=== PATIENT | female | born 1965 | race Caucasian/White ===

== ENCOUNTER 2019-05-04 16:39 | Emergency (ER) | payer BC, SELFPAY ==
[2019-05-04 16:49] VITALS: BP 125/79; PULSE 68; RESP 16; TEMP 36.8; O2SAT 98
--- NOTE | 2019-05-04 16:51 | ED.EAR ---
HPI - Ear Problem General Chief complaint: Ear Stated complaint: L/Ear Plugged Time Seen by Provider: 05/04/19 16:47 Source: patient and RN notes reviewed Mode of arrival: ambulatory Limitations: no limitations History of Present Illness HPI Narrative: 54-year-old female presents with concern for left ear being clogged. Reports decreased hearing, feeling of fullness. Reports recent cold symptoms. Reports she is been putting hydrogen peroxide in it with no results. MD Complaint: decreased hearing Related Data Home Medications Medication Instructions Recorded Confirmed amitriptyline 25 mg PO DAILY 05/04/19 05/04/19 cetirizine [Zyrtec] 10 mg PO DAILY 05/04/19 05/04/19 fluticasone propionate [Flonase 1 spray INTRANASAL DAILY 05/04/19 05/04/19 Allergy Relief] propranolol 20 mg PO DAILY 05/04/19 05/04/19 Allergies Allergy/AdvReac Type Severity Reaction Status Date / Time No Known Allergies Allergy Unverified 01/06/14 17:03 Review of Systems Review of Systems: Narrative: CONSTITUTIONAL: Denies malaise, chills, sweats, or fever. ENT: Reports rhinorrhea, congestion, left ear fullness, decreased hearing left ear. Denies sinus pain, otalgia and sore throat. CARDIOVASCULAR: Denies chest pain, palpitations, or edema. RESPIRATORY: Denies cough or dyspnea. GASTROINTESTINAL: Denies abdominal pain, nausea, vomiting, diarrhea SKIN: Denies rash or itching. MUSCULOSKELETAL: Denies myalgia. NEUROLOGIC: Denies headache. All systems reviewed & are unremarkable except as noted in HPI and below PMFSH Family History Family History (Updated 11/18/13 @ 07:13 by DOCTOR UNKNOWN) Mother Family history of elevated blood lipids Other Diabetes mellitus Social History Social History Smoking status: Never smoker Second hand tobacco smoke exposure: No Alcohol intake: current Comments At time of signature, agree with nursing past medical, surgical, social and family history. There is no relevant family history pertinent to the presenting complaint Exam Narrative: Exam Narrative: GENERAL: Well-appearing, well-nourished, and in no acute distress. HEAD: Normocephalic EYES: PERRLA, conjunctivae clear ENT: Nares clear, turbinates erythematous, clear discharge. Mucous membranes moist. Right TM pearly liriano with dull light reflex left TM not visible due to cerumen impaction; no tragal tenderness. Oropharynx not erythematous without lesions. Tonsils not enlarged and without exudate, no drooling, no hoarseness, no trismus. NECK: Supple. No lymphadenopathy CHEST: No respiratory distress, speaks in full sentences. HEART: Regular rate and rhythm. SKIN: Warm, dry, no rash. NEURO: Alert and oriented x3. PSYCH: Normal mood and affect Course Course Emergency Course: Patient is aware of diagnosis, understands and agrees to treatment plan. Anticipatory guidance given. Patient agrees to follow-up as directed and is aware of reasons to seek care at the emergency department. Portions of this record may have been created with voice recognition software Vital Signs Vital signs: Vital Signs Temperature 98.3 F 05/04/19 16:49 Pulse Rate 68 05/04/19 16:49 Respiratory Rate 16 05/04/19 16:49 Blood Pressure 125/79 05/04/19 16:49 Pulse Oximetry 98 05/04/19 16:49 Temperature 98.3 F 05/04/19 16:49 Pulse Rate 68 05/04/19 16:49 Respiratory Rate 16 05/04/19 16:49 Blood Pressure 125/79 05/04/19 16:49 Pulse Oximetry 98 05/04/19 16:49 Reviewed. Procedures Ear Wax Removal Left Ear: Ear Wax Removal Date: 05/04/19 Ear Wax Removal Time: 17:05 Cerumenolytic Used: Cerumenex Results: Re-examined: cerumen removed completely TM Examination: other (TM pearly liriano, dull with effusion) Ear Canal Exam: atraumatic Patient Tolerated Procedure: well Complications: no problems Technique: ear canal curetted Medical Decision Making [facility] Narrative Medical decision mary
[2019-05-04] MEDS: CARBAMIDE PEROXIDE 6.5% OT SOLN 15 ML BTL 5 DROP LEFT EAR (16:57)
== END 2019-05-04 17:45 | disposition home or self-care (01) ==
PROVIDERS: Emergency Provider Nurse Practitioner; PCP Family Medicine
DX: H61.22 Impacted cerumen, left ear (principal); J01.90 Acute sinusitis, unspecified; M79.7 Fibromyalgia
CPT/HCPCS: 69210; 99213; A9270; G0463

== ENCOUNTER → 2020-01-03 12:33 | Outpatient (CLI) | payer BC, SELFPAY ==
--- NOTE | ~2020-01-03 | MM_ITS ---
EXAMINATION: MM screening kylee BI w jenni HISTORY: Screening TECHNIQUE: Craniocaudal and mediolateral oblique 3-D tomosynthesis images were obtained and synthetic 2-D images were generated. CAD analysis was submitted and interpreted. COMPARISON: Comparison to multiple prior studies sequentially, with oldest reviewed study dated 10/07. BREAST PARENCHYMAL COMPOSITION: The breasts are heterogeneously dense, which may obscure small masses . FINDINGS: There is no evidence of suspicious mass, calcification, or architectural distortion to sugg est malignancy in either breast. There has been no suspicious interval change. IMPRESSION: 1. No mammographic evidence of malignancy. 2. Recommend routine screening mammography in one year. BI-RADS Category 1: Negative Reviewed, dictated and finalized at location A.
== END ==
PROVIDERS: PCP Family Medicine; Visit Provider Obstetrics & Gynecology
DX: Z12.31 Encounter for screening mammogram for malignant neoplasm of breast (principal)
CPT/HCPCS: 77063; 77067

== ENCOUNTER → 2021-01-12 16:22 | Outpatient (CLI) | payer BC, SELFPAY ==
--- NOTE | ~2021-01-12 | MM_ITS ---
EXAMINATION: MM screening kylee BI w jenni HISTORY: Screening mammogram TECHNIQUE: Craniocaudal and mediolateral oblique 3-D tomosynthesis images were obtained and synthetic 2-D images were generated. CAD analysis was submitted and interpreted. COMPARISON: 01/03/2020, 11/19/2018, 10/21/2017 bilateral digital screening mammogram examinations BREAST PARENCHYMAL COMPOSITION: There are scattered areas of fibroglandular density.. FINDINGS: There is no evidence of suspicious mass, calcification, or architectural distortion to sugg est malignancy in either breast. There has been no suspicious interval change. IMPRESSION: 1. No mammographic evidence of malignancy. 2. Recommend routine screening mammography in one year. BI-RADS Category 1: Negative Reviewed, dictated and finalized at location A.
== END ==
PROVIDERS: PCP Family Medicine; Visit Provider Obstetrics & Gynecology
DX: Z12.31 Encounter for screening mammogram for malignant neoplasm of breast (principal)
CPT/HCPCS: 77063; 77067

== ENCOUNTER 2021-07-05 00:40 | Day surgery (SDC) | payer BC, SELFPAY ==
[2021-06-22 13:51] VITALS: BMI 27.1
--- NOTE | 2021-07-04 13:35 | PM.HPGS ---
History of Present Illness History of Present Illness Consent: Risks, benefits, and alternatives have been discussed and questions answered. Patient agrees to proceed with procedure. Chief complaint: neoplasm screening Narrative: Geno Billings is a 56 year old female Referred for colon cancer screening. She had an appendiceal carcinoid tumor removed about 12 years ago Review of Systems Review of Systems: All systems reviewed & are unremarkable except as noted in HPI and below PMFSH Past Medical History Medical History Appendicitis Auto immune neutropenia BMI 27.0-27.9,adult Migraine Surgical History Surgical History History of colon surgery Family History Family History Mother Family history of elevated blood lipids Other Diabetes mellitus Social History Social History Smoking status: Never smoker Second hand tobacco smoke exposure: No Alcohol intake: current Alcohol use details: 4 drinks monthly Living arrangements: with family Spiritual care concerns: No Meds Home Medications and Allergies Home Medications Medication Instructions Recorded Confirmed Type cetirizine [Zyrtec] 10 mg PO DAILY 05/04/19 07/05/21 History fluticasone propionate [Flonase 1 spray INTRANASAL DAILY 05/04/19 07/05/21 History Allergy Relief] propranolol 20 mg PO BID 05/04/19 07/05/21 History omeprazole 40 mg capsule,delayed 40 mg PO DAILY #30 cap 05/30/21 07/05/21 Rx release amitriptyline 25 mg PO HS 06/22/21 07/05/21 History Allergies Allergy/AdvReac Type Severity Reaction Status Date / Time No Known Allergies Allergy Verified 07/05/21 07:42 Exam Resp: Auscultation: clear to auscultation bilaterally Cardio: Rate: regular rate Rhythm: regular rhythm GI: GI Palp: Yes Soft to palpation and No Tenderness to palpation present (GI) Assessment and Plan Assessment and plan (1) Screening for colon cancer: Code(s): Z12.11 - Encounter for screening for malignant neoplasm of colon Status: Acute Assessment and Plan: Colonoscopy with possible biopsy or polypectomy or cautery or injection of substances.
[2021-07-05 07:43] VITALS: BP 122/85; PULSE 66; RESP 18; TEMP 37; O2SAT 100
[2021-07-05] MEDS: LACTATED RINGERS 1,000 ML 150 ML IV CONT (07:52)
--- NOTE | 2021-07-05 08:12 | WPDANESEPPF ---
Anes - Initial Pre Proc Eval Procedure: Operation Date: 07/05/21 09:00 Proposed Procedures p Screening Colonoscopy - Andrea Valiente MD Date/Time: 07/05/21 08:12 Surgeon: Andrea Valiente MD Pre Op Diagnosis: neoplasm screening Patient Data Age: 56 Gender: F Height: 1.78 m Weight: 83.8 kg Last Vital Signs Temp 37.0 C 07/05/21 07:43 Pulse 66 07/05/21 07:43 Resp 18 07/05/21 07:43 BP 122/85 07/05/21 07:43 Pulse Ox 100 07/05/21 07:43 Allergies Allergy/AdvReac Type Severity Reaction Status Date / Time No Known Allergies Allergy Verified 07/05/21 07:42 Home Medications Medication Instructions Recorded Confirmed Type cetirizine [Zyrtec] 10 mg PO DAILY 05/04/19 07/05/21 History fluticasone propionate [Flonase 1 spray INTRANASAL DAILY 05/04/19 07/05/21 History Allergy Relief] propranolol 20 mg PO BID 05/04/19 07/05/21 History omeprazole 40 mg capsule,delayed 40 mg PO DAILY #30 cap 05/30/21 07/05/21 Rx release amitriptyline 25 mg PO HS 06/22/21 07/05/21 History Patient hx anesthesia problems: none Family hx anesthesia problems: none Results Review: All pre-operative results and documents have been reviewed as part of the pre-operative evaluation. [facility] Past Medical History Medical History Appendicitis Auto immune neutropenia BMI 27.0-27.9,adult Migraine Surgical History Surgical History History of colon surgery Family History Family History Mother Family history of elevated blood lipids Other Diabetes mellitus Social History Social History Smoking status: Never smoker Second hand tobacco smoke exposure: No Alcohol intake: current Alcohol use details: 4 drinks monthly Living arrangements: with family Spiritual care concerns: No Anes - Eval Final PreProcedure Day of Procedure 07/05/21 08:12 Patient weight: overweight Heart: regular rate and rhythm Lungs: clear to auscultation Airway: Mallampati scale class II Neurological: alert and oriented Last oral intake: >/= 8 hours ASA classification: II Emergent: no Anesthetic plan: proceed Anesthesia type and monitoring: general GIVS and standard monitoring Results Review: All pre-operative results and documents have been reviewed as part of the pre-operative evaluation. Informed Consent: The patient's anesthetic plan and its attendant risks and benefits were discussed with the patient/family/POA. Questions were solicited and answers provided to the satisfaction of the patient/family/POA.
[2021-07-05 09:11] VITALS: BP 101/69; PULSE 61; RESP 24; O2SAT 99
[2021-07-05 09:21] VITALS: BP 111/75; PULSE 59; RESP 17; O2SAT 100
[2021-07-05 09:31] VITALS: BP 114/74; PULSE 57; RESP 21; O2SAT 99
== END 2021-07-05 09:38 | disposition home or self-care (01) ==
PROVIDERS: PCP Family Medicine; Visit Provider Internal Medicine Gastroenterology
PROC: 0DJD8ZZ Inspection of Lower Intestinal Tract, Via Natural or Artificial Opening Endoscopic (ICD-10-PCS; CPT 45378; principal; 2021-07-05 09:00)
DX: Z12.11 Encounter for screening for malignant neoplasm of colon (principal); K57.30 Diverticulosis of large intestine without perforation or abscess without bleeding; Z90.49 Acquired absence of other specified parts of digestive tract
CPT/HCPCS: 45378; J2001; J2704; J7120

== ENCOUNTER 2021-11-10 15:03 | Emergency (ER) | payer BC, SELFPAY ==
--- NOTE | 2021-11-10 15:07 | ED.HA ---
HPI - Headache General Chief Complaint: Headache Stated Complaint: Vomitting, Head pains/headaches Time Seen by Provider: 11/10/21 15:06 Source: patient Mode of arrival: ambulatory Limitations: no limitations History of Present Illness HPI Narrative: Ms. Seymour is a 56-year-old female patient presenting to the clinic today with complaints of headache, nausea, and vomiting x3 days. She reports she does have a history of migraine headaches and takes her propranolol every day. She also has been taking Sudafed. States she is having frontal headache with pressure and throbbing. She reports the pain 8 out of 10 currently. The pain has been making her so nauseous that she has been vomiting. She denies any runny nose but when she does blow her nose is clear. Does have nasal congestion. She did a home COVID test this morning that was negative. Related Data Home Medications Medication Instructions Recorded Confirmed cetirizine 10 mg tablet (Zyrtec) 10 mg PO DAILY 05/04/19 11/10/21 fluticasone propionate 50 1 spray intranasal DAILY 05/04/19 11/10/21 mcg/actuation nasal spray,suspension (Flonase Allergy Relief) propranolol 20 mg tablet 20 mg PO BID 05/04/19 11/10/21 amitriptyline 25 mg tablet 25 mg PO HS 06/22/21 11/10/21 Allergies Allergy/AdvReac Type Severity Reaction Status Date / Time No Known Allergies Allergy Verified 11/10/21 15:08 Review of Systems Review of Systems: Pertinent positives per HPI. Patient denies any fever, chills, rash, headache, visual changes, dizziness, cough, runny nose, sore throat, shortness of breath, chest pain, palpitations, nausea, vomiting, diarrhea, constipation, abdominal pain, or any urinary issues. [facility] Past Medical History Medical History Appendicitis Auto immune neutropenia BMI 27.0-27.9,adult Migraine Surgical History Surgical History History of colon surgery Family History Family History Mother Family history of elevated blood lipids Other Diabetes mellitus Social History Social History Smoking status: Never smoker Second hand tobacco smoke exposure: No Alcohol intake: current Alcohol use details: 4 drinks monthly Spiritual care concerns: No Comments At the time of my signature, I reviewed and agree with the nursing past medical, surgical, social, and family history. There is no relevant family history pertinent to the patient complaint. Exam Narrative: General: Well-developed, well nourished, in no apparent distress Head: Normocephalic, atraumatic Eyes: Pupils equally round and reactive to light bilaterally, EOM intact, sclera and conjunctive clear, no discharge, lids normal Ears: TMs intact and clear, ear canals clear, no drainage, grossly hearing normal. Nose: Nares patent, no discharge, moderate inflammation, frontal sinus tenderness/pressure Mouth: Oropharynx without lesions or masses, good dentition, MMM. Neck: Supple, trachea midline, no enlargement of anterior or posterior cervical nodes, no thyroid masses or goiter palpable. Cardio: Regular rate and rhythm, s1 and s2 normal, no murmur appreciated. Resp: Clear to auscultation bilaterally anteriorly and posteriorly, no rhonchi, rales, wheezing or rubs Course Course Emergency Course: Portions of this record may have been created with voice recognition software. Level of Care: Express Care Visit Vital Signs Vital signs: Vital signs reviewed MDM - Headache MDM Narrative Medical decision making narrative: At the time of visit patient is resting comfortably on the exam table. I suspect the patient has a sinus headache. I will send her in a prescription for some prednisone and Zofran and give her an injection of Toradol 60 mg i
[2021-11-10 15:11] VITALS: BP 139/86; PULSE 66; RESP 16; TEMP 35.6; O2SAT 100
[2021-11-10] MEDS: KETOROLAC (*BKC) 60 MG/2 ML VIAL IM (15:33)
== END 2021-11-10 15:45 | disposition home or self-care (01) ==
PROVIDERS: Emergency Provider Nurse Practitioner Family
DX: R51.9 Headache, unspecified (principal); R11.2 Nausea with vomiting, unspecified; D70.8 Other neutropenia
CPT/HCPCS: 96372; 99213; G0463; J1885

== ENCOUNTER 2021-11-16 16:06 | Emergency (ER) | payer BC, SELFPAY ==
[2021-11-16 16:19] VITALS: BP 126/73; PULSE 66; RESP 16; TEMP 36.6; O2SAT 100
--- NOTE | 2021-11-16 16:43 | ED.HA ---
HPI - Headache General Chief Complaint: Headache Stated Complaint: ortiz Time Seen by Provider: 11/16/21 16:43 History of Present Illness HPI Narrative: Geno Billings is a 56-year-old female PMH of seasonal allergies, GERD, anxiety, migraine, complaining of migraine and sinus congestion and feeling like she is got pressure at the frontal sinus and her ears/she was seen here 6 days ago and was treated with prednisone and Zofran for migraine and she states that she started feeling better but she took her last prednisone yesterday and the headache has returned- Takes propanolol for migraine headache twice a day normally and has been working well up to the last 2 weeks Related Data Home Medications Medication Instructions Recorded Confirmed cetirizine 10 mg tablet (Zyrtec) 10 mg PO DAILY 05/04/19 11/10/21 fluticasone propionate 50 1 spray intranasal DAILY 05/04/19 11/10/21 mcg/actuation nasal spray,suspension (Flonase Allergy Relief) propranolol 20 mg tablet 20 mg PO BID 05/04/19 11/10/21 amitriptyline 25 mg tablet 25 mg PO HS 06/22/21 11/10/21 Allergies Allergy/AdvReac Type Severity Reaction Status Date / Time No Known Allergies Allergy Verified 11/10/21 15:08 Review of Systems Review of Systems: CONSTITUTIONAL: Denies fever, chills, sweats. EYES: Denies visual changes, redness, discharge. ENT: Denies rhinorrhea, congestion, sore throat, otalgia. Mild redness in ears no sinus drainage CARDIOVASCULAR: Denies chest pain, palpitations, edema. RESPIRATORY: Denies dyspnea, wheezing, cough GASTROINTESTINAL: Denies abdominal pain, nausea, vomiting, diarrhea. GENITOURINARY: Denies dysuria, hematuria, abnormal discharge SKIN: Denies rash or itching. NEUROLOGIC: Denies numbness, or focal weakness. PSYCHIATRIC: Denies anxiety or depression. [facility] Past Medical History Medical History Appendicitis Auto immune neutropenia BMI 27.0-27.9,adult Migraine Surgical History Surgical History History of colon surgery Family History Family History Mother Family history of elevated blood lipids Other Diabetes mellitus Social History Social History Smoking status: Never smoker Second hand tobacco smoke exposure: No Alcohol intake: current Alcohol use details: 4 drinks monthly Spiritual care concerns: No Comments At time of signature, I agree with nursing past medical, surgical, social and family history. There is no relevant family history pertinent to the presenting complaint. Exam Narrative: GENERAL: This is a well-nourished, well-developed patient, in mild distress. HEAD: normocephalic, atraumatic. EYES: Sclera clear/white. Vision is grossly intact. EARS: External ears normal, auditory canals mild erythema and without drainage, TMs normal without perforation. Hearing grossly intact. NOSE: External nose normal without nasal discharge, nares without redness, no rhinorrhea. Erythema of turbinates THROAT: Mucous membranes moist, NECK: Neck supple, non-tender CARDIOVASCULAR: Regular rate and rhythm without murmurs, gallops, or rubs. RESPIRATORY: Clear to auscultation. Breath sounds equal bilaterally. No wheezes, rales, or rhonchi. GASTROINTESTINAL: Not done SKIN: warm, intact with no suspicious lesions or rash, good texture and turgor. NEURO: awake, alert, and oriented to person, place and time. There were no obvious focal neurologic abnormalities. Steady gait EXTREMITIES: Normal range of motion. BACK: Nontender without deformity Course Course Emergency Course: Patient here for return of migraine headache and was treated last week so will change treatment direction give one-time dose of 60 mg of prednisone on Toradol, put on a taper pack of steroids and Augmentin this go around L
[2021-11-16] MEDS: predniSONE 20 MG TABLET 60 MG PO (17:06)
[2021-11-16] MEDS: KETOROLAC (*BKC) 60 MG/2 ML VIAL IM (17:06)
== END 2021-11-16 17:26 | disposition home or self-care (01) ==
PROVIDERS: Emergency Provider Nurse Practitioner; PCP Family Medicine
DX: R51.9 Headache, unspecified (principal); D70.8 Other neutropenia
CPT/HCPCS: 96372; 99213; G0463; J1885; J7512

== ENCOUNTER 2021-12-08 11:02 | Outpatient (CLI) | payer BC, SELFPAY ==
--- NOTE | ~2021-12-08 | CT_ITS ---
EXAMINATION: CT sinus wo con DATE: 12/08/2021 11:27 INDICATION: Acute headache. TECHNIQUE: Computed tomography (CT) of the paranasal sinuses was performed without intravenous contra st. Iterative reconstruction technique was employed. The dose-length product was 343.37 mGy-cm. COMPARISON: None FINDINGS: The frontal, ethmoid, and sphenoid sinuses are clear. There is mild mucosal thickening in r ight maxillary sinus. There is mucosal thickening in the left infundibulum with stenosis of the infun dibulum. The ostiomeatal units are patent. There is leftward deviation of the nasal septum. IMPRESSION: 1. Mild mucosal thickening in the paranasal sinuses. 2. Leftward deviation of the nasal septum. Reviewed, dictated and finalized at location A.
== END 2021-12-08 11:03 | disposition home or self-care (01) ==
PROVIDERS: PCP Family Medicine; Visit Provider Nurse Practitioner Family
DX: G43.909 Migraine, unspecified, not intractable, without status migrainosus (principal); J34.89 Other specified disorders of nose and nasal sinuses; R42 Dizziness and giddiness; J34.2 Deviated nasal septum
CPT/HCPCS: 70486

== ENCOUNTER → 2022-03-08 15:27 | Outpatient (CLI) | payer BC, SELFPAY ==
--- NOTE | ~2022-03-08 | MM_ITS ---
EXAMINATION: MM screening kylee BI w jenni HISTORY: Screening TECHNIQUE: Craniocaudal and mediolateral oblique 3-D tomosynthesis images were obtained and synthetic 2-D images were generated. CAD analysis was submitted and interpreted. COMPARISON: Comparison to multiple prior studies sequentially, with oldest reviewed study dated 01/22. BREAST PARENCHYMAL COMPOSITION: There are scattered areas of fibroglandular density. FINDINGS: There is no evidence of suspicious mass, calcification, or architectural distortion to sugg est malignancy in either breast. There has been no suspicious interval change. IMPRESSION: 1. No mammographic evidence of malignancy. 2. Recommend routine screening mammography in one year. BI-RADS Category 1: Negative Reviewed, dictated and finalized at location B. [employer]
== END ==
PROVIDERS: PCP Family Medicine; Visit Provider Obstetrics & Gynecology
DX: Z12.31 Encounter for screening mammogram for malignant neoplasm of breast (principal)
CPT/HCPCS: 77063; 77067

== ENCOUNTER 2022-08-02 16:00 | Emergency (ER) | payer BC, SELFPAY ==
[2022-08-02 16:11] VITALS: BP 118/56; PULSE 78; RESP 17; TEMP 37.5; O2SAT 100
--- NOTE | 2022-08-02 16:37 | ED.URI ---
HPI - URI/Sore Throat General Chief Complaint: Upper Respiratory Infection Stated Complaint: pain in ear; popping jaw; headache; sore throat Time Seen by Provider: 08/02/22 16:23 Source: patient and RN notes reviewed Mode of arrival: ambulatory Limitations: no limitations History of Present Illness HPI Narrative: Patient presents today complaining of left ear pain x1 week with fatigue x2 days and swollen glands of the neck that occurred today. Denies fever, cough, congestion, rhinorrhea. Patient has been taking ibuprofen and allergy medication today without much relief. Related Data Home Medications Medication Instructions Recorded Confirmed cetirizine 10 mg tablet (Zyrtec) 10 mg PO DAILY 05/04/19 08/02/22 fluticasone propionate 50 1 spray intranasal DAILY 05/04/19 08/02/22 mcg/actuation nasal spray,suspension (Flonase Allergy Relief) propranolol 20 mg tablet 20 mg PO BID 05/04/19 08/02/22 amitriptyline 25 mg tablet 25 mg PO HS 06/22/21 08/02/22 Allergies Allergy/AdvReac Type Severity Reaction Status Date / Time No Known Allergies Allergy Verified 01/01/22 16:17 Review of Systems Review of Systems: CONSTITUTIONAL: Denies body aches, fever, chills, or sweats.+ fatigue EYES: Denies visual changes, redness, or discharge. ENT: Denies rhinorrhea, congestion, sore throat. + left ear pain, swollen glands CARDIOVASCULAR: Denies chest pain, palpitations, or edema. RESPIRATORY: Denies cough or dyspnea. GASTROINTESTINAL: Denies abdominal pain, nausea, vomiting, or diarrhea. GENITOURINARY: Denies dysuria or hematuria. SKIN: Denies rash, itching, or wounds. MUSCULOSKELETAL: Denies back pain, joint pain, or myalgia. NEUROLOGIC: Denies headache, numbness, tingling, or weakness. PSYCH: Denies depression or anxiety. [facility] Past Medical History Medical History Abnormal Pap smear of cervix 2008 ascus hpv negative Appendicitis Auto immune neutropenia BMI 27.0-27.9,adult Dizziness Fibromyalgia Frequent headaches Migraine Screening mammogram, encounter for Surgical History Surgical History History of appendectomy (~2008) noncancerous tumor inside History of colon surgery (04/19/08) 10 colon removed--carcinoid noncancerous tumor Family History Family History Mother Family history of elevated blood lipids Hypertension Other Diabetes mellitus uncle Carcinoma of colon aunt Breast cancer maternal aunt Grandparent Heart disease Sibling Acute myocardial infarction sister Social History Social History Smoking status: Never smoker Second hand tobacco smoke exposure: No Alcohol intake: former Alcohol use details: 4 drinks monthly Substance use: never Substance use type: does not use Living arrangements: other Additional living arrangements comments: Occupation/Education: occupation Additional occupation/education comments: teachers Gender identity (if verbalized by the patient): Female Sexual Orientation (if Verbalized by the Patient): Straight or Heterosexual Spiritual care concerns: No Comments At time of signature, I have reviewed and agree with nursing past medical, surgical, social and family history unless otherwise noted. Please see nursing chart for further information. There is no relevant family history pertinent to the presenting complaint Exam Narrative: GENERAL: Well-appearing, well-nourished, and in no acute distress. HEAD: Normocephalic, atraumatic. EYES: EOMI. No redness or drainage. Conjunctivae normal. ENT: Mucous membranes pink and moist. Nares clear. No rhinorrhea. TMs normal bilaterally. Throat erythematous and edematous. Tonsils 3+ with white exudate. Uvula
== END 2022-08-02 16:44 | disposition home or self-care (01) ==
PROVIDERS: Emergency Provider Nurse Practitioner; PCP Family Medicine
DX: J02.0 Streptococcal pharyngitis (principal); M79.7 Fibromyalgia
CPT/HCPCS: 87880; 99213; G0463

== ENCOUNTER 2022-12-16 18:47 | Emergency (ER) | payer BC, SELFPAY ==
[2022-12-16 19:30] VITALS: BP 134/77; PULSE 77; RESP 16; TEMP 37.2; O2SAT 100
--- NOTE | 2022-12-16 19:51 | ED.URI ---
HPI - URI/Sore Throat General Chief Complaint: Upper Respiratory Infection Stated Complaint: headache,sore throat,fever Time Seen by Provider: 12/16/22 19:51 Source: patient Mode of arrival: ambulatory Limitations: no limitations History of Present Illness HPI Narrative: 57-year-old female presents with complaint of postnasal drainage, sore throat, cough, nasal congestion sinus pressure feels like can not take a full breath. Symptoms for 2-3 days. Afebrile. Patient takes Zyrtec and Flonase daily. Did home COVID test that was negative. All systems reviewed and negative except as noted above. Related Data Home Medications Medication Instructions Recorded Confirmed propranolol 20 mg tablet 20 mg PO BID 05/04/19 12/16/22 amitriptyline 25 mg tablet 25 mg PO HS 06/22/21 12/16/22 Allergies Allergy/AdvReac Type Severity Reaction Status Date / Time No Known Allergies Allergy Verified 12/16/22 18:55 Review of Systems Review of Systems: CONSTITUTIONAL: Denies fever, chills, or sweats. Reports fatigue. EYES: Denies visual changes, redness, or discharge. ENT: Reports rhinorrhea, congestion, sore throat. Denies otalgia. CARDIOVASCULAR: Denies chest pain, palpitations, or edema. RESPIRATORY: reports cough and dyspnea with exertion.. GASTROINTESTINAL: Denies abdominal pain, nausea, vomiting, or diarrhea. GENITOURINARY: Denies dysuria or hematuria. SKIN: Denies rash or itching. MUSCULOSKELETAL: Denies back pain, joint pain, or myalgia. NEUROLOGIC: Denies headache, numbness, or weakness. PSYCHIATRIC: Denies anxiety or depression. All other systems reviewed are negative, except as documented in HPI. 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 Family History Family History Mother Family history of elevated blood lipids Hypertension Other Diabetes mellitus uncle Carcinoma of colon aunt Breast cancer maternal aunt Grandparent Heart disease Sibling Acute myocardial infarction sister Social History Social History Smoking status: Never smoker Second hand tobacco smoke exposure: No Alcohol intake: former Alcohol use details: 4 drinks monthly Substance use: never Substance use type: does not use Living arrangements: other Additional living arrangements comments: Occupation/Education: occupation Additional occupation/education comments: teachers Gender identity (if verbalized by the patient): Female Sexual Orientation (if Verbalized by the Patient): Straight or Heterosexual Spiritual care concerns: No Comments At time of signature, agree with nursing past medical, surgical, social and family history. There is no relevant family history pertinent to the presenting complaint. Exam Narrative: GENERAL: This is a well-nourished, well-developed patient, in no apparent distress. HEAD: normocephalic, atraumatic. EYES: PERRL. Sclera clear/white. Vision is grossly intact. EARS: External ears normal, auditory canals clear and without drainage, TMs normal without perforation. Hearing grossly intact. NOSE: External nose normal with no obvious nasal discharge, nares without redness, no rhinorrhea. THROAT: Mucous membranes moist, posterior pharynx clear. NECK: Neck supple, non-tender without lymphadenopathy, masses or thyromegaly.
== END 2022-12-16 20:05 | disposition home or self-care (01) ==
PROVIDERS: Emergency Provider Nurse Practitioner Family; PCP Family Medicine
DX: J06.9 Acute upper respiratory infection, unspecified (principal); Z79.899 Other long term (current) drug therapy
CPT/HCPCS: 87081; 87147; 87804; 87880; 99213; G0463

== ENCOUNTER 2023-03-18 16:37 | Emergency (ER) | payer BC, SELFPAY ==
[2023-03-18 16:44] VITALS: BP 125/79; PULSE 65; RESP 16; TEMP 37.2; O2SAT 100
--- NOTE | 2023-03-18 17:21 | ED.URI ---
HPI - URI/Sore Throat General Chief Complaint: Upper Respiratory Infection Stated Complaint: cough,sinus drainage,sore throat Time Seen by Provider: 03/18/23 17:21 Source: patient Mode of arrival: ambulatory Limitations: no limitations History of Present Illness HPI Narrative: 58-year-old female presents with complaint of sinus pressure, pain, drainage for One week. Reports taking [id number] sinus medication with Temporary relief of symptoms except for drainage. States sounds drainage taste bad, concerned for bacterial infection. All systems reviewed and negative except as noted above. Related Data Home Medications Medication Instructions Recorded Confirmed propranolol 20 mg tablet 20 mg PO BID 05/04/19 03/18/23 amitriptyline 25 mg tablet 25 mg PO HS 06/22/21 03/18/23 fluticasone propionate 50 1 spray intranasal DAILY 01/07/23 03/18/23 mcg/actuation nasal spray,suspension (Flonase Allergy Relief) Allergies Allergy/AdvReac Type Severity Reaction Status Date / Time No Known Allergies Allergy Verified 03/18/23 16:43 Review of Systems Review of Systems: CONSTITUTIONAL: Denies fever, chills, or sweats. EYES: Denies visual changes, redness, or discharge. ENT: reports rhinorrhea, congestion, sinus pressure, postnasal drainage. Denies sore throat, or otalgia. CARDIOVASCULAR: Denies chest pain, palpitations, or edema. RESPIRATORY: Denies cough or dyspnea. GASTROINTESTINAL: Denies abdominal pain, nausea, vomiting, or diarrhea. GENITOURINARY: Denies dysuria or hematuria. SKIN: Denies rash or itching. MUSCULOSKELETAL: Denies back pain, joint pain, or myalgia. NEUROLOGIC: Denies headache, numbness, or weakness. PSYCHIATRIC: Denies anxiety or depression. All other systems reviewed are negative, except as documented in HPI. [facility] Past Medical History Medical History Abnormal Pap smear of cervix 2008 ascus hpv negative Appendicitis Auto immune neutropenia BMI 27.0-27.9,adult Dizziness Fibromyalgia Frequent headaches Migraine Screening mammogram, encounter for Surgical History Surgical History History of appendectomy (~2008) noncancerous tumor inside History of colon surgery (04/19/08) 10 colon removed--carcinoid noncancerous tumor Family History Family History Mother Family history of elevated blood lipids Hypertension Other Diabetes mellitus uncle Carcinoma of colon aunt Breast cancer maternal aunt Grandparent Heart disease Sibling Acute myocardial infarction sister Social History Social History (Updated 01/07/23 @ 16:23 by TREY Kohler) Smoking status: Never smoker Second hand tobacco smoke exposure: No Alcohol intake: former Alcohol use details: 4 drinks monthly Substance use: never Substance use type: does not use Lack of Transportation: No Lack of Food: Never True Current Housing: I Have Housing Concerned About Future Housing: No Difficulty Paying Gas/Electric Bills: No Difficulty Paying for Meds: No Currently Unemployed: No Education: Bachelor's Degree Difficulty w/ Childcare or Family Care: No Living arrangements: other Additional living arrangements comments: Occupation/Education: occupation Additional occupation/education comments: teachers Gender identity (if verbalized by the patient): Female Sexual Orientation (if Verbalized by the Patient): Straight or Heterosexual Spiritual care concerns: No Comments At time of signature, agree with nursing past medical, surgical, social and family history. There is no relevant family history pertinent to the presenting complaint. Exam Narrative: GENERAL: This is a well-nourished, well-developed patient, in no apparent distress. HEAD: normocephal
== END 2023-03-18 17:36 | disposition home or self-care (01) ==
PROVIDERS: Emergency Provider Nurse Practitioner Family; PCP Family Medicine
DX: J01.90 Acute sinusitis, unspecified (principal); D70.8 Other neutropenia; M79.7 Fibromyalgia
CPT/HCPCS: 99213; G0463

== ENCOUNTER 2023-04-23 17:41 | Outpatient (CLI) | payer BC, SELFPAY ==
--- NOTE | ~2023-04-23 | XR_ITS ---
EXAMINATION: XR chest 2V DATE: 04/23/2023 17:54 INDICATION: Coughing TECHNIQUE: PA and lateral views of the chest were obtained. COMPARISON: None FINDINGS: The lungs are clear with no focal airspace opacities, pulmonary edema, pleural effusion or pneumothor ax. The cardiomediastinal silhouette is normal. Moderate thoracic spondylosis. Mild kyphosis with mil d anterior wedging of a few mid thoracic vertebral bodies. IMPRESSION: 1. No acute cardiopulmonary disease. Reviewed, dictated and finalized at location A. OUT MANAGER
== END 2023-04-23 17:42 | disposition home or self-care (01) ==
LOC: ANHIMG 17:42
PROVIDERS: PCP Family Medicine; Visit Provider Nurse Practitioner Adult Health
DX: R05.9 Cough, unspecified (principal)
CPT/HCPCS: 71046

== ENCOUNTER 2023-04-25 15:57 | Outpatient (CLI) | payer BC, SELFPAY ==
--- NOTE | ~2023-04-25 | MM_ITS ---
EXAMINATION: MM screening [facility] BI w jenni HISTORY: Screening mammogram TECHNIQUE: Craniocaudal and mediolateral oblique 3-D tomosynthesis images were obtained and synthetic 2-D images were generated. CAD analysis was submitted and interpreted. COMPARISON: 03/08/2022, 01/12/2021, 01/03/2020 BREAST PARENCHYMAL COMPOSITION: There are scattered areas of fibroglandular density. FINDINGS: No suspicious mass, calcification, or architectural distortion are identified in either anuel ast to suggest malignancy. There has been no suspicious interval change. IMPRESSION: 1. No mammographic evidence of malignancy. 2. Recommend routine screening mammography in one year. BI-RADS Category 1: Negative Reviewed, dictated and finalized at location A. S PULLER
== END 2023-04-25 15:58 ==
LOC: MICIMG 15:59
PROVIDERS: PCP Obstetrics & Gynecology; Visit Provider Obstetrics & Gynecology
DX: Z12.31 Encounter for screening mammogram for malignant neoplasm of breast (principal)
CPT/HCPCS: 77063; 77067

== ENCOUNTER 2024-01-19 16:40 | Emergency (ER) | payer BC, SELFPAY ==
--- NOTE | 2024-01-19 16:53 | ED.URI ---
HPI - URI/Sore Throat General Chief Complaint: Upper Respiratory Infection Stated Complaint: cough,nasal mucus,drainage in throat Time Seen by Provider: 01/19/24 16:42 Source: patient Mode of arrival: ambulatory Limitations: no limitations History of Present Illness HPI Narrative: Patient is a 59-year-old female who presents with 9 days of cough, nasal congestion, drainage in the throat. Denies any fever, chills, nausea, vomiting, diarrhea. Patient has taken [id number] medication with no relief. Related Data Home Medications Medication Instructions Recorded Confirmed propranolol 20 mg tablet 20 mg PO BID 05/04/19 01/19/24 amitriptyline 25 mg tablet 25 mg PO HS 06/22/21 01/19/24 fluticasone propionate 50 1 spray intranasal DAILY 01/07/23 01/19/24 mcg/actuation nasal spray,suspension (Flonase Allergy Relief) Allergies Allergy/AdvReac Type Severity Reaction Status Date / Time No Known Allergies Allergy Verified 01/19/24 16:48 Review of Systems Review of Systems: All systems reviewed & are unremarkable except as noted in HPI and below Constitutional: Constitutional: Denies body ache(s), Denies chills, Denies fatigue, Denies fever(s), Denies headache(s), Denies malaise and Denies weakness Eyes: Eyes: Denies blurry vision, Denies itchy eyes and Denies loss of vision ENT: Denies otalgia, Denies headache(s), Reports nasal congestion, Reports post nasal drip, Denies sinus pain and Denies sore throat Cardiovascular: Cardiovascular: Denies chest pain, Denies irregular heart rhythm and Denies dyspnea Respiratory: Respiratory: Reports cough and Denies dyspnea Gastrointestinal: Gastrointestinal: Denies abdominal pain, Denies diarrhea, Denies nausea and Denies vomiting Musculoskeletal: Musculoskeletal: Denies back pain, Denies myalgias and Denies arthralgias Integumentary/Breasts: Skin/Breast: Denies pruritus and Denies rash Neurologic: Denies headache(s), Denies loss of vision and Denies weakness Psychiatric: Psychiatric: Reports no additional psychiatric complaints Endocrine: Endocrine: Denies fatigue Allergic/Immunologic: Allergic/Immunologic: Denies itchy eyes PMFSH Past Medical History Medical History Abnormal Pap smear of cervix 2008 ascus hpv negative Appendicitis Auto immune neutropenia BMI 27.0-27.9,adult Chronic sinusitis Coughing Dizziness Fibromyalgia Frequent headaches Migraine Screening mammogram, encounter for Surgical History Surgical History History of appendectomy (~2008) noncancerous tumor inside History of colon surgery (04/19/08) 10 colon removed--carcinoid noncancerous tumor Family History Family History Mother Family history of elevated blood lipids Hypertension Other Diabetes mellitus uncle Carcinoma of colon aunt Breast cancer maternal aunt Grandparent Heart disease Sibling Acute myocardial infarction sister Social History Social History Smoking status: Never smoker Second hand tobacco smoke exposure: No Alcohol intake: current Alcohol use details: 4 drinks monthly Substance use: never Substance use type: does not use Do You Feel Safe in your Home?: Yes Lack of Transportation: No Lack of Food: Never True Current Housing: I Have Housing Concerned About Future Housing: No Difficulty Paying Gas/Electric Bills: No Difficulty Paying for Meds: No Currently Unemployed: No Education: Bachelor's Degree Difficulty w/ Childcare or Family Care: No Living arrangements: with family Additional living arrangements comments: Occupation/Education: occupation Additional occupation/education comments: teachers Gender identity (if verbalized by the patient): Female Sexual Orientation (if Verbalized by the Patient): Straight or Heterosexual Spiritual care concerns: No Comments At time of signature, agree with nursing past medical, surgical, social and family history. There is no relevant family history pertinent to the presenting complaint. Exam Const: General: cooperative, healthy appearing, comfortable, no acute distress and well nourished Nutritional Appearance: well nourished Orientation/consciousness: patient oriented x3 Limitations: no limitations HENMT: Head: normal to inspection, normocephalic and atraumatic Ears: hearing grossly normal bilaterally, external ears normal, TM's normal bilaterally, EAC's normal and no periauricular adenopathy Face/Nose/Sinus: Normal external nose present, Abnormal mucous membranes and turbinates present erythematous bilateral and diffuse, normal facial exam, sinuses nontender and face symmetric Face and sinus: normal facial exam, sinuses nontender and face symmetric Mouth: Yes Normal oral and palatal mucosa present, Yes lip normal, Yes tongue normal, Yes Normal salivary glands and ducts present, Yes oropharynx normal and Yes moist mucous membranes Teeth and gingiva: dentition normal Throat: posterior oropharynx normal, tonsils normal, uvula midline and postnasal drainage Eyes: General: appearance normal, both eyes and all related structures Alignment and Position: alignment normal and position normal Periorbital: periorbital findings normal Eyelids: eyelids normal Pupils: Equal, round and reactive pupils present Neck: Neck: normal visual inspection, full ROM, no lymphadenopathy and supple Chest: Chest palpation & inspection: normal inspection of the chest and normal palpation of entire chest wall Resp: Effort & Inspection: normal respiratory effort and able to speak in complete sentences Auscultation: clear to auscultation bilaterally, no crackles, no rales, no rhonchi and no wheezes Cardio: Rate: regular rate Rhythm: regular rhythm Heart sounds: S1 normal heart sound present and S2 normal heart sound present GI: Inspection: normal to inspection Skin: General skin exam: normal color and no rashes or lesions noted Neuro: General: patient oriented x3 and moves all extremities Cranial nerves: Yes Equal, round and reactive pupils present Speech: normal speech Gait exam (Neuro): Normal gait present Extrem: General: normal to inspection, full ROM and no edema Psych: Appearance: grossly normal and well kempt Mental Status: mental status grossly normal Speech and movement: Normal speech and movement present Affect: normal affect Attitude: cooperative Thought process: Normal thought process present Course Course Emergency Course: Patient is aware of diagnosis, understands and agrees to treatment plan. Anticipatory guidance given. Patient agrees to follow-up as directed and is aware of reasons to seek care at the emergency department. Portions of this record may have been created with voice recognition software Level of Care: Express Care Visit Vital Signs Vital signs: Reviewed MDM - URI/Sore Throat MDM Narrative Medical decision making narrative: Discharge instructions reviewed with patient, as well as provided in writing per nursing staff. The instructions also include specific and strict return/GO TO THE ER as well as f/u information. All questions have been answered, and the patient deny any further questions with discharge and discharge plan. Differential diagnosis considered: [place] virus, strep pharyngitis, allergic rhinitis, upper respiratory tract infection, sinusitis, rhinosinusitis, nasopharyngitis. viral pharyngitis, otitis media, otitis externa, otitis effusion, foreign body, cerumen impaction, viral syndrome, and influenza.? Exam findings show no acute concerns or changes; patient is non-toxic appearing and is in no distress.? Patient is appropriate for outpatient treatment and follow-up.? Medical Records Attestation: I reviewed the patient's medical records. Discharge Plan Discharge Clinical Impression: Upper respiratory infection with cough and congestion Patient Disposition: Home, Self-Care Condition: Stable Instructions: Upper Respiratory Infection (ED) Additional Instructions: Take antibiotic as prescribed. Take steroids per package instructions Use Tessalon Perles as needed for cough. Other symptomatic treatments include: -Alternate Tylenol and Motrin per package directions for fever or pain. -Antihistamine medication such as Benadryl at night and Zyrtec/Claritin/Naida during the day can help improve symptoms. -Use Flonase twice a day for 5 days then daily to help reduce the inflammation and dry up your sinuses. -You can also use Sudafed or Mucinex. Be sure to drink plenty of water with these medications at least 8 ounces with every dose and it is important to drink 8 to 10 glasses of water per day. Water is a natural decongestant -Eat and drink things that are easy to swallow, like tea or soup, or popsicles. -Oral rinses such as: Salt water gargles and/or may use topical anesthetic (eg. Chloraseptic spray) or lozenges to relieve dryness or throat pain). -Frequent hand washing or hand urgent care physician assistant is one of the best ways to prevent spread of infection. -Using a vaporizer or humidifier at night will also help thin secretions and help with coughing up phlegm. -Follow up with primary care provider in 3-5 days if condition is not improving - For new or worsening symptoms go directly to the nearest ER Prescriptions: New azithromycin 250 mg tablet See Rx Instructions .ROUTE .COMPLEX Qty: 6 0RF Rx Instructions: For 250 mg dose pack: take 500 mg today (day 1), then 250 mg for 4 days (days 2-5) benzonatate 100 mg capsule 100 mg PO BID PRN (Reason: cough) Qty: 14 0RF methylprednisolone [Medrol (Jamie)] 4 mg tablets,dose pack See Rx Instructions .ROUTE .COMPLEX Qty: 21 0RF Rx Instructions: orally per package directions No Action propranolol 20 mg tablet 20 mg PO BID fluticasone propionate [Flonase Allergy Relief] 50 mcg/actuation spray,suspension 1 spray intranasal DAILY Rx Instructions: administer into each nostril estradiol 0.01 % (0.1 mg/gram) cream 1 g vaginal 3XW Qty: 42.5 3RF amitriptyline 25 mg tablet 25 mg PO HS Rx Instructions: TAKE 1 TABLET AT BEDTIME omeprazole 40 mg capsule,delayed release(DR/EC) 40 mg PO DAILY Qty: 90 0RF Follow-up/Referrals: Krishna Kaur MD [Primary Care Provider] - 3 Days Time of Disposition: 17:37
[2024-01-19 16:55] VITALS: BP 127/77; PULSE 69; RESP 16; TEMP 36.7; O2SAT 100
== END 2024-01-19 17:39 | disposition home or self-care (01) ==
PROVIDERS: Emergency Provider Nurse Practitioner Family; PCP Family Medicine
DX: J06.9 Acute upper respiratory infection, unspecified (principal); D70.8 Other neutropenia; M79.7 Fibromyalgia
CPT/HCPCS: 99213; G0463

== ENCOUNTER 2024-03-06 08:17 | Emergency (ER) | payer BC, SELFPAY ==
[2024-03-06 08:30] VITALS: BP 121/62; PULSE 74; RESP 16; TEMP 36.7; O2SAT 99
--- NOTE | 2024-03-06 08:30 | ED.URI ---
HPI - URI/Sore Throat General Chief Complaint: Upper Respiratory Infection Stated Complaint: congestion,MEDINA,runny nose/eyes Time Seen by Provider: 03/06/24 08:30 Source: patient Mode of arrival: ambulatory Limitations: no limitations History of Present Illness HPI Narrative: Jailene is a 59-year-old female patient presenting to the clinic today with complaints of nasal congestion, sinus pressure, headache, runny nose and runny eyes for over 1 week. She reports she is blowing out yellow nasal drainage. History of chronic sinusitis. MD elicited complaint: cough, rhinorrhea, nasal congestion and sinus pain Related Data Home Medications ?Medication ?Instructions ?Recorded ?Confirmed ?Last Taken ?Type propranolol 20 mg tablet 20 mg PO BID 05/04/19 03/06/24 07/05/21 06:15 History amitriptyline 25 mg tablet 25 mg PO HS 06/22/21 03/06/24 07/04/21 22:45 History fluticasone propionate 50 1 spray intranasal DAILY 01/07/23 03/06/24 Unknown History mcg/actuation nasal spray,suspension (Flonase Allergy Relief) Allergies Allergy/AdvReac Type Severity Reaction Status Date / Time No Known Allergies Allergy Verified 03/06/24 08:24 Review of Systems Review of Systems: Pertinent positives per HPI. Patient denies any fever, chills, rash, headache, visual changes, dizziness, shortness of breath, chest pain, palpitations, nausea, vomiting, diarrhea, constipation, abdominal pain, or any urinary issues. PMFSH Past Medical History Medical History Abnormal Pap smear of cervix 2008 ascus hpv negative Appendicitis Auto immune neutropenia BMI 27.0-27.9,adult Chronic sinusitis Coughing Dizziness Fibromyalgia Frequent headaches Migraine Screening mammogram, encounter for Surgical History Surgical History History of appendectomy (~2008) noncancerous tumor inside History of colon surgery (04/19/08) 10 colon removed--carcinoid noncancerous tumor Family History Family History Mother Family history of elevated blood lipids Hypertension Other Diabetes mellitus uncle Carcinoma of colon aunt Breast cancer maternal aunt Grandparent Heart disease Sibling Acute myocardial infarction sister Social History Social History Smoking status: Never smoker Second hand tobacco smoke exposure: No Alcohol intake: current Alcohol use details: 4 drinks monthly Substance use: never Substance use type: does not use Do You Feel Safe in your Home?: Yes Lack of Transportation: No Lack of Food: Never True Current Housing: I Have Housing Concerned About Future Housing: No Difficulty Paying Gas/Electric Bills: No Difficulty Paying for Meds: No Currently Unemployed: No Education: Bachelor's Degree Difficulty w/ Childcare or Family Care: No Living arrangements: with family Additional living arrangements comments: 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 There is no relevant family history pertinent to the patient complaint. Exam Narrative: General: Well-developed, well nourished, in no apparent distress Head: Normocephalic, atraumatic Eyes: Pupils equally round and reactive to light bilaterally, EOM intact, sclera and conjunctive clear, no discharge, lids normal Ears: TMs intact and clear, ear canals clear, no drainage, grossly hearing normal. Nose: Nares patent, yellow nasal discharge, severe inflammation, maxillary and frontal sinus tenderness. Mouth: Oral pharynx without lesions or masses, good dentition, MMM. Postnasal drip Neck: Supple, trachea midline, no enlargement of anterior or posterior cervical nodes, no thyroid masses or goiter palpable. Cardio: Regular rate and rhythm, s1 and s2 normal, no murmur appreciated. Resp: Clear to auscultation bilaterally, no rhonchi, rales, wheezing or rubs Course Course Emergency Course: Portions of this record may have been created with voice recognition software. Level of Care: Express Care Visit Vital Signs Vital signs: Vital signs reviewed MDM - URI/Sore Throat MDM Narrative Medical decision making narrative: At the time of visit patient is resting comfortably on the exam table. Patient appears to be nontoxic. Plan: I suspect patient has acute bacterial rhinosinusitis. Prescription for Augmentin and prednisone was sent to the pharmacy. Supportive measures were discussed with the patient and they voiced understanding discharge instructions and agrees to treatment plan. Return precautions reviewed Differential Diagnosis Differential diagnosis: Likely upper respiratory infection, otitis media, sinusitis, viral infection, bronchitis, influenza, pharyngitis and other (COVID) Discharge Plan Discharge Clinical Impression: Acute bacterial sinusitis Patient Disposition: Home, Self-Care Condition: Stable Instructions: Antibiotic Form, Rhinosinusitis (ED) Additional Instructions: Take prescription medications only as prescribed-prednisone and Augmentin Increase fluids and stay well hydrated Tylenol/motrin for pain/fever Flonase and OTC antihistamines as directed Vicks vapor rub to open sinuses Sinus rinses for congestion Cepacol spray, cough drops, throat lozenges, warm tea with honey/lemon, gargle salt water to soothe throat BRAT diet for diarrhea Clear liquids x 24 hours then advance as tolerated for nausea/vomiting Go to the ED if you develop a worsening in your condition- high fever not controlled by Tylenol or Motrin, dehydration, weakness, lethargy, shortness of breath, or chest pain. Follow up with your PCP in 3-5 days if symptoms persist. Patient Language: Cameroonian Prescriptions: New amoxicillin-pot clavulanate 875-125 mg tablet 1 tablet PO Q12H 10 Days Qty: 20 0RF prednisone 20 mg tablet 40 mg PO DAILY 5 Days Qty: 10 0RF No Action propranolol 20 mg tablet 20 mg PO BID fluticasone propionate [Flonase Allergy Relief] 50 mcg/actuation spray,suspension 1 spray intranasal DAILY Rx Instructions: administer into each nostril estradiol 0.01 % (0.1 mg/gram) cream 1 g vaginal 3XW Qty: 42.5 3RF amitriptyline 25 mg tablet 25 mg PO HS Rx Instructions: TAKE 1 TABLET AT BEDTIME omeprazole 40 mg capsule,delayed release(DR/EC) 40 mg PO DAILY Qty: 90 0RF Follow-up/Referrals: Krishna Kaur MD [Primary Care Provider] - Time of Disposition: 08:34 Quality NIHSS Nursing Documentation ED NIHSS nursing documentation: reviewed/agree
== END 2024-03-06 08:37 | disposition home or self-care (01) ==
PROVIDERS: Emergency Provider Nurse Practitioner Family; PCP Family Medicine
DX: J01.90 Acute sinusitis, unspecified (principal); D70.8 Other neutropenia; M79.7 Fibromyalgia
CPT/HCPCS: 99213; G0463

== ENCOUNTER 2024-04-30 18:27 | Emergency (ER) | payer BC, SELFPAY ==
[2024-04-30 18:56] VITALS: BP 118/63; PULSE 56; RESP 16; TEMP 36.1; O2SAT 99
--- NOTE | 2024-04-30 19:43 | ED_ITS ---
HPI - URI/Sore Throat General Chief Complaint: Upper Respiratory Infection Stated Complaint: sore throat Time Seen by Provider: 04/30/24 19:44 Source: patient, RN notes reviewed and old records reviewed Mode of arrival: ambulatory Limitations: no limitations History of Present Illness HPI Narrative: Patient presents with complaints of sore throat for 3 or 4 days. 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 She denies any fever, chills, sweats. She is able t o manage own secretions, no drooling or stridor. She reports no difficulty eating. She voices no other concerns or complaints at this time Related Data Home Medications ?Medication ?Instructions ?Recorded ?Confirmed ?Last Taken ?Type propranolol 20 mg tablet 20 mg PO BID 05/04/19 03/06/24 07/05/21 06:15 History amitriptyline 25 mg tablet 25 mg PO HS 06/22/21 03/06/24 07/04/21 22:45 History fluticasone propionate 50 1 spray intranasal DAILY 01/07/23 03/06/24 Unknown History mcg/actuation nasal spray,suspension (Flonase Allergy Relief) rimegepant 75 mg disintegrating mg 04/30/24 Unknown History tablet (Nurtec ODT) Allergies Allergy/AdvReac Type Severity Reaction Status Date / Time No Known Allergies Allergy Verified 04/30/24 19:48 Review of Systems Review of Systems: All systems reviewed & are unremarkable except as noted in HPI and below Constitutional: Constitutional: Reports no additional constitutional complaints ENT: Reports system reviewed and no additional complaints, except as documented and Reports sore throat Cardiovascular: Cardiovascular: Reports no additional cardiovascular complaints Respiratory: Respiratory: Reports no additional respiratory complaints Gastrointestinal: Gastrointestinal: Reports no additional gastrointestinal complaints PMFSH Past Medical History Medical History Coughing Chronic sinusitis Screening mammogram, encounter for Frequent headaches Fibromyalgia Abnormal Pap smear of cervix 2008 ascus hpv negative Dizziness Appendicitis Migraine Auto immune neutropenia BMI 27.0-27.9,adult Surgical History Surgical History History of appendectomy (~2008) noncancerous tumor inside History of colon surgery (04/19/08) 10 colon removed--carcinoid noncancerous tumor Family History Family History Mother Family history of elevated blood lipids Hypertension Other Diabetes mellitus uncle Carcinoma of colon aunt Breast cancer maternal aunt Grandparent Heart disease Sibling Acute myocardial infarction sister Social History Social History Smoking status: Never smoker Second hand tobacco smoke exposure: No Alcohol intake: current Alcohol use details: 4 drinks monthly Substance use: never Substance use type: does not use Do You Feel Safe in your Home?: Yes Lack of Transportation: No Lack of Food: Never True Current Housing: I Have Housing Concerned About Future Housing: No Difficulty Paying Gas/Electric Bills: No Difficulty Paying for Meds: No Currently Unemployed: No Education: Bachelor's Degree Difficulty w/ Childcare or Family Care: No Living arrangements: with family Additional living arrangements comments: 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 There is no relevant family history pertinent to the patient complaint. Exam Const: General: cooperative, no acute distress, alert and awake Orientation/consciousness: oriented to person, oriented to place and oriented to time HENMT: Head: normal to inspection Ears: TM's normal bilaterally Mouth: Yes moist mucous membranes Throat: posterior oropharynx abnormal erythema Resp: Effort & Inspection: normal respiratory effort and able to speak in complete sentences Auscultation: clear to auscultation bilaterally, no crackles, no rales, no rhonchi and no wheezes Cardio: Palpation: normal PMI Rate: regular rate Rhythm: regular rhythm Heart sounds: S1 normal heart sound present and S2 normal heart sound present Neuro: General: oriented to person, oriented to place and oriented to time Cranial nerves: Yes CN's II-XII intact bilaterally Psych: Appearance: grossly normal Thought process: Normal thought process present Insight: Good insight present (Psych) Judgement: Good judgement present (Psych) Course Course Level of Care: Express Care Visit Vital Signs Vital signs: Vital Signs Temperature 97.0 F L 04/30/24 18:56 Pulse Rate 56 L 04/30/24 18:56 Respiratory Rate 16 04/30/24 18:56 Blood Pressure 118/63 04/30/24 18:56 Pulse Oximetry 99 04/30/24 18:56 Oxygen Delivery Room Air 04/30/24 18:56 Temperature 97.0 F L 04/30/24 18:56 Pulse Rate 56 L 04/30/24 18:56 Respiratory Rate 16 04/30/24 18:56 Blood Pressure 118/63 04/30/24 18:56 Pulse Oximetry 99 04/30/24 18:56 Oxygen Delivery Room Air 04/30/24 18:56 Reviewed MDM - URI/Sore Throat MDM Narrative Medical decision making narrative: Patient nontoxic appearing, no distress. Negative rapid strep. Culture pending. Supportive care measures discussed. Discharge instructions reviewed with patient, as well as provided in writing per nursing staff. The instructions also include specific and strict return/GO TO THE ER as well as f/u information. All questions have been answered, and the patient deny any further questions with discharge and discharge plan. Some parts of this dictation were generated by voice recognition software and may contain typographical and/or grammatical inaccuracies. Differential Diagnosis Differential diagnosis: Likely upper respiratory infection, sinusitis and pharyngitis Medical Records Attestation: I reviewed the patient's medical records. Lab Data Attestation: I reviewed the patient's lab results. Labs: Lab Results 04/30/24 Range/Units 19:57 POC Grp A Strep Screen Negative (Negative) Discharge Plan Discharge Clinical Impression: Upper respiratory infection Patient Disposition: Home, Self-Care Condition: Stable Instructions: Antibiotic Form, Cold Symptoms (ED) Patient Language: Romanian Prescriptions: No Action amoxicillin-pot clavulanate 875-125 mg tablet 1 tablet PO Q12H 10 Days Qty: 20 0RF Nurtec ODT 75 mg tablet,disintegrating propranolol 20 mg tablet 20 mg PO BID fluticasone propionate [Flonase Allergy Relief] 50 mcg/actuation spray,suspension 1 spray intranasal DAILY Rx Instructions: administer into each nostril estradiol 0.01 % (0.1 mg/gram) cream 1 g vaginal 3XW Qty: 42.5 3RF amitriptyline 25 mg tablet 25 mg PO HS Rx Instructions: TAKE 1 TABLET AT BEDTIME omeprazole 40 mg capsule,delayed release(DR/EC) 40 mg PO DAILY Qty: 90 0RF Follow-up/Referrals: Krishna Kaur MD [Primary Care Provider] - Time of Disposition: 20:01
[2024-04-30 19:58] LABS: EDSTREPNEGPOS1 Negative (Negative)
== END 2024-04-30 20:00 | disposition home or self-care (01) ==
PROVIDERS: Emergency Provider Nurse Practitioner Family; PCP Family Medicine
DX: J06.9 Acute upper respiratory infection, unspecified (principal); M79.7 Fibromyalgia; D70.8 Other neutropenia
CPT/HCPCS: 87081; 87880; 99213; G0463

== ENCOUNTER 2024-06-22 16:31 | Outpatient (CLI) | payer BC, SELFPAY ==
--- NOTE | ~2024-06-22 | MM_ITS ---
EXAMINATION: MM screening kylee BI w jenni HISTORY: Screening TECHNIQUE: Craniocaudal and mediolateral oblique 3-D tomosynthesis images were obtained and synthetic 2-D images were generated. CAD analysis was submitted and interpreted. COMPARISON: Comparison to multiple prior studies sequentially, with oldest reviewed study dated 10/21. BREAST PARENCHYMAL COMPOSITION: Dense: The breasts are heterogeneously dense, which may obscure small masses FINDINGS: There is a new focal asymmetry in the central aspect of the left breast, middle third. The right breast is stable without evidence for malignancy. IMPRESSION: 1. New focal left breast asymmetry. 2. Additional mammographic views and possible breast ultrasound are recommended. BI-RADS Category 0: Incomplete: Needs additional imaging evaluation. Reviewed, dictated and finalized at location A. IMPRESSION: 1. New focal left breast asymmetry. 2. Additional mammographic views and possible breast ultrasound are recommended . BI-RADS Category 0: Incomplete: Needs additional imaging evaluation.
== END 2024-06-22 16:32 | disposition home or self-care (01) ==
LOC: MICIMG 16:32
PROVIDERS: PCP Family Medicine; Visit Provider Obstetrics & Gynecology
DX: Z12.31 Encounter for screening mammogram for malignant neoplasm of breast (principal); R92.8 Other abnormal and inconclusive findings on diagnostic imaging of breast
CPT/HCPCS: 77063; 77067

== ENCOUNTER 2024-07-14 08:28 | Outpatient (CLI) | payer BC, SELFPAY ==
--- NOTE | ~2024-07-14 | MMUS_ITS ---
EXAMINATION: MM diagnostic kylee LT w jenni, US breast LT complete HISTORY: Left breast asymmetry TECHNIQUE: Additional 3-D tomosynthesis images of the left breast were performed and synthetic 2-D im ages were generated. CAD analysis was submitted and interpreted. High resolution complete left breast ultrasound was performed. COMPARISON: Comparison to multiple prior studies sequentially, with oldest reviewed study dated 11/19. BREAST PARENCHYMAL COMPOSITION: Not dense: There are scattered areas of fibroglandular density. FINDINGS: MAMMOGRAPHIC FINDINGS: There are no suspicious masses, calcifications or architectural distortion in the left breast to sugg est malignancy. ULTRASOUND: Complete US of all 4 quadrants of the left breast/s and retroareolar region was reviewed. Normal hete rogeneous echotexture without focal solid or cystic mass. IMPRESSION: 1. No evidence for malignancy in the left breast. 2.. Routine yearly screening mammogram and regular clinical breast examination are recommended. BI-RADS Category 1: Negative Reviewed, dictated and finalized at location A. IMPRESSION: 1. No evidence for malignancy in the left breast. 2.. Routine yearly screening mammogram and regular clinical breast examination are recommended. BI-RADS Category 1: Negative
== END 2024-07-14 08:29 | disposition home or self-care (01) ==
LOC: MICIMG 08:29
PROVIDERS: PCP Family Medicine; Visit Provider Obstetrics & Gynecology
DX: N64.89 Other specified disorders of breast (principal)
CPT/HCPCS: 76641; 77061; 77065; G0279

== ENCOUNTER 2024-10-10 14:50 | Emergency (ER) | payer BC, SELFPAY ==
[2024-10-10 14:56] VITALS: BP 128/80; PULSE 85; RESP 18; TEMP 36.8; O2SAT 100
[2024-10-10 15:03] LABS: EDUAAPPEAR Cloudy; EDUABILI Negative (Negative); EDUABLOOD 1+ (Negative); EDUACOLOR1 Dark; EDUAGLUCOSE Negative (Negative); EDUAKETONE Negative (Negative); EDUALEUKO 2+ (Negative); EDUANITRATE Negative (Negative); EDUAPH 6.0; EDUAPROTEIN 1+ (Negative); EDUASPGRAVITY 1.015; EDUAUROBILI 0.2
--- NOTE | 2024-10-10 15:15 | ED_ITS ---
HPI - Female Genitourinary General Chief complaint: Urogenital-Female Stated complaint: urinary irritation Time Seen by Provider: 10/10/24 15:10 Source: patient and RN notes reviewed Mode of arrival: ambulatory Limitations: no limitations History of Present Illness HPI Narrative: 59-year-old female presents Express Care complaining of urinary symptoms for 3 days. Patient reports having dysuria, increased frequency, and hesitancy. Patient denies any fevers, abdominal pain, body aches, chills, nausea, vomiting, diarrhea, hematuria, vaginal bleeding, vaginal discharge, or pelvic pain,. Patient has not taken anything [id number] for symptoms. Patient denies any significant past medical history. Related Data Home Medications ?Medication ?Instructions ?Recorded ?Confirmed ?Last Taken ?Type propranolol 20 mg tablet 20 mg PO BID 05/04/19 03/06/24 07/05/21 06:15 History amitriptyline 50 mg tablet mg 10/10/24 Unknown History cetirizine 10 mg tablet (24Hour 10 mg PO DAILY PRN allergy symptoms 10/10/24 Unknown History Allergy) fluticasone propionate 50 1 spray intranasal DAILY PRN 10/10/24 Unknown History mcg/actuation nasal allergy symptoms spray,suspension (24 Hour Allergy Relief) Allergies Allergy/AdvReac Type Severity Reaction Status Date / Time No Known Allergies Allergy Verified 10/10/24 14:52 Review of Systems Review of Systems: CONSTITUTIONAL: Denies fever, chills, body aches, or sweats. EYES: Denies visual changes, redness, or discharge. ENT: Denies rhinorrhea, congestion, sore throat, or otalgia. CARDIOVASCULAR: Denies chest pain, palpitations, or edema. RESPIRATORY: Denies cough or dyspnea. GASTROINTESTINAL: Denies abdominal pain, nausea, vomiting, or diarrhea. GENITOURINARY: Positive for dysuria, increased frequency, hesitancy. Negative for hematuria, pelvic pain, vaginal bleeding, vaginal discharge, vaginal irritation. SKIN: Denies rash or itching. MUSCULOSKELETAL: Denies back pain, joint pain, or myalgia. NEUROLOGIC: Denies headache, numbness, or weakness. PSYCHIATRIC: Denies anxiety or depression. All other systems reviewed are negative, except as documented in HPI. [facility] Past Medical History Medical History Breast asymmetry Coughing Chronic sinusitis Screening mammogram, encounter for Frequent headaches Fibromyalgia Abnormal Pap smear of cervix 2008 ascus hpv negative Dizziness Appendicitis Migraine Auto immune neutropenia BMI 27.0-27.9,adult Surgical History Surgical History History of appendectomy (~2008) noncancerous tumor inside History of colon surgery (04/19/08) 10 colon removed--carcinoid noncancerous tumor Family History Family History Mother Family history of elevated blood lipids Hypertension Other Diabetes mellitus uncle Carcinoma of colon aunt Breast cancer maternal aunt Grandparent Heart disease Sibling Acute myocardial infarction sister Social History Social History Smoking status: Never smoker Second hand tobacco smoke exposure: No Alcohol intake: current Alcohol use details: 4 drinks monthly Substance use: never Substance use type: does not use Do You Feel Safe in your Home?: Yes Lack of Transportation: No Lack of Food: Never True Current Housing: I Have Housing Concerned About Future Housing: No Difficulty Paying Gas/Electric Bills: No Difficulty Paying for Meds: No Currently Unemployed: No Education: Bachelor's Degree Difficulty w/ Childcare or Family Care: No Living arrangements: with family Additional living arrangements comments: 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 There is no relevant family history pertinent to the patient complaint. Exam Narrative: GENERAL: This is a well-nourished, well-developed adult, in no apparent distress. They are non ill-appearing, nontoxic appearing. HEAD: normocephalic, atraumatic. EYES: Sclera clear/white. Vision is grossly intact. Conjunctiva normal bilaterally. Extraocular movements intact. EARS: External ears normal,Hearing grossly intact. NOSE: External nose normal THROAT: Mucous membranes moist NECK: Normal range of motion CARDIOVASCULAR: Regular rate and rhythm. Normal S1-S2. No clicks, gallops, rubs, murmurs. RESPIRATORY: Respiratory rate normal, respiratory effort nonlabored, no respiratory distress. Lung sounds clear to auscultation throughout. Lung sounds equal bilaterally. No adventitious lung sounds. GASTROINTESTINAL: Abdomen soft, flat, non-tender, nondistended. Bowel sounds are active. No hepato-splenomegaly, or palpable masses. No guarding or rigidity. No rebound tenderness. SKIN: warm, Dry, intact with no suspicious lesions or rash, good texture and turgor. NEURO: awake, alert, and oriented to person, place and time. There were no obvious focal neurologic abnormalities. EXTREMITIES: No joint tenderness, effusion, or edema noted. BACK: Nontender without deformity. No CVA tenderness. Course Course Emergency Course: Portions of this record may have been created with voice recognition software Level of Care: Express Care Visit Vital Signs Vital signs: Vital Signs Temperature 98.3 F 10/10/24 14:56 Pulse Rate 85 10/10/24 14:56 Respiratory Rate 18 10/10/24 14:56 Blood Pressure 128/80 10/10/24 14:56 Pulse Oximetry 100 10/10/24 14:56 Oxygen Delivery Room Air 10/10/24 14:56 Temperature 98.3 F 10/10/24 14:56 Pulse Rate 85 10/10/24 14:56 Respiratory Rate 18 10/10/24 14:56 Blood Pressure 128/80 10/10/24 14:56 Pulse Oximetry 100 10/10/24 14:56 Oxygen Delivery Room Air 10/10/24 14:56 MDM - Female Genitourinary MDM Narrative Medical decision making narrative: Urine dipstick shows evidence of urinary tract infection. Urine culture pending. Patient's symptoms clinically consistent with urinary tract infection. Go ahead and treat her with cephalexin. Discussed physical exam findings. Advised supportive measures and signs/symptoms to go to the ER. Pt is appropriate for outpt treatment and f/u. Differential Diagnosis Differential diagnosis: Likely urinary tract infection, cystitis and other (Pyelonephritis) Lab Data Attestation: I reviewed the patient's lab results. Labs: Lab Results 10/10/24 Range/Units 15:00 POC Urine Color Dark POC Urine Clarity Cloudy POC Urine pH 6.0 POC Ur Specif [place] 1.015 POC Urine Protein 1+ (Negative) POC Ur Glucose (UA) Negative (Negative) POC Urine Ketones Negative (Negative) POC Urine Blood 1+ (Negative) POC Urine Nitrite Negative (Negative) POC Urine Bilirubin Negative (Negative) POC Urine Urobilinogen 0.2 POC U Leukocyte Esteras 2+ (Negative) Discharge Plan Discharge Clinical Impression: Urinary tract infection Qualifiers: Urinary tract infection type: site unspecified Hematuria presence: without hematuria Qualified Code(s): N39.0 - Urinary tract infection, site not specified Patient Disposition: Home Condition: Stable Instructions: Antibiotic Form, Urinary Tract Infection in Women (ED) Patient Language: Slovenian Prescriptions: New cephalexin 500 mg capsule 500 mg PO BID 5 Days Qty: 10 0RF No Action amitriptyline 50 mg tablet cetirizine [24Hour Allergy] 10 mg tablet 10 mg PO DAILY PRN (Reason: allergy symptoms) fluticasone propionate [24 Hour Allergy Relief] 50 mcg/actuation spray,suspens ion 1 spray intranasal DAILY PRN (Reason: allergy symptoms) Rx Instructions: administer into each nostril propranolol 20 mg tablet 20 mg PO BID Follow-up/Referrals: Krishna Kaur MD [Primary Care Provider] - Time of Disposition: 15:13
== END 2024-10-10 15:20 | disposition home or self-care (01) ==
PROVIDERS: PCP Family Medicine
DX: N39.0 Urinary tract infection, site not specified (principal); M79.7 Fibromyalgia; D70.8 Other neutropenia
CPT/HCPCS: 81003; 87086; 99213; G0463

== ENCOUNTER 2024-10-30 17:33 | Emergency (ER) | payer BC, SELFPAY ==
[2024-10-30 17:39] VITALS: BP 122/67; PULSE 63; RESP 16; TEMP 37.1; O2SAT 100
--- NOTE | 2024-10-30 18:17 | ED_ITS ---
HPI - Dental/Oral General Chief complaint: Dental/Oral Stated complaint: sore throat/mouth pain Time Seen by Provider: 10/30/24 17:50 Source: patient and RN notes reviewed Mode of arrival: ambulatory Limitations: no limitations History of Present Illness HPI Narrative: 59-year-old female presents Express Care complaining of sore throat and mouth pain for approximately 2 to 3 days. She recently have crowns placed to her left upper mouth. Next day after she developed a sore throat reports pain and swelling to the left side of her face. Patient also reports pain and swelling to the left side of her tongue. Patient denies any fevers, body aches, chills, cough, congestion, runny nose, earache, chest pain, difficulty breathing, nausea, vomiting, or any other symptoms. Patient under my burn related to her r ecent dental procedure and called her dentist who recommended salt water rinses and pain control with NSAIDs and Tylenol. Patient said she is not getting much relief. Related Data Home Medications ?Medication ?Instructions ?Recorded ?Confirmed ?Last Taken ?Type propranolol 20 mg tablet 20 mg PO BID 05/04/19 03/06/24 07/05/21 06:15 History amitriptyline 50 mg tablet mg 10/10/24 Unknown History cetirizine 10 mg tablet (24Hour 10 mg PO DAILY PRN allergy symptoms 10/10/24 Unknown History Allergy) fluticasone propionate 50 1 spray intranasal DAILY PRN 10/10/24 Unknown History mcg/actuation nasal allergy symptoms spray,suspension (24 Hour Allergy Relief) Allergies Allergy/AdvReac Type Severity Reaction Status Date / Time No Known Allergies Allergy Verified 10/30/24 17:37 Review of Systems Review of Systems: CONSTITUTIONAL: Denies fever, chills, or sweats. EYES: Denies visual changes, redness, or discharge. ENT: Denies rhinorrhea, congestion, dysphagia, difficulty clearing secretions, or otalgia. Positive for sore throat. MOUTH: Positive for swelling. CARDIOVASCULAR: Denies chest pain, palpitations, or edema. RESPIRATORY: Denies cough or dyspnea. GASTROINTESTINAL: Denies abdominal pain, nausea, vomiting, or diarrhea. GENITOURINARY: Denies dysuria or hematuria. SKIN: Denies rash or itching. MUSCULOSKELETAL: Denies back pain, joint pain, or myalgia. NEUROLOGIC: Denies headache, numbness, or weakness. PSYCHIATRIC: Denies anxiety or depression. All other systems reviewed are negative, except as documented in HPI. [facility] Past Medical History Medical History Breast asymmetry Coughing Chronic sinusitis Screening mammogram, encounter for Frequent headaches Fibromyalgia Abnormal Pap smear of cervix 2008 ascus hpv negative Dizziness Appendicitis Migraine Auto immune neutropenia BMI 27.0-27.9,adult Surgical History Surgical History History of appendectomy (~2008) noncancerous tumor inside History of colon surgery (04/19/08) 10 colon removed--carcinoid noncancerous tumor Family History Family History Mother Family history of elevated blood lipids Hypertension Other Diabetes mellitus uncle Carcinoma of colon aunt Breast cancer maternal aunt Grandparent Heart disease Sibling Acute myocardial infarction sister Social History Social History Smoking status: Never smoker Second hand tobacco smoke exposure: No Alcohol intake: current Alcohol use details: 4 drinks monthly Substance use: never Substance use type: does not use Do You Feel Safe in your Home?: Yes Lack of Transportation: No Lack of Food: Never True Current Housing: I Have Housing Concerned About Future Housing: No Difficulty Paying Gas/Electric Bills: No Difficulty Paying for Meds: No Currently Unemployed: No Education: Bachelor's Degree Difficulty w/ Childcare or Family Care: No Living arrangements: with family Additional living arrangements comments: 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 There is no relevant family history pertinent to the patient complaint. Exam Narrative: GENERAL: This is a well-nourished, well-developed adult, in no apparent distress. They are non ill-appearing, nontoxic appearing. HEAD: normocephalic, atraumatic. EYES: Sclera clear/white. Conjunctiva normal. Vision is grossly intact. Extraocular movements intact EARS: External ears normal, Hearing grossly intact. NOSE: External nose normal THROAT: Mucous membranes moist, posterior pharynx erythema without swelling no exudate. Uvula midline. OROPHARYNX: There are white papular vesicular lesions primarily present to the left soft palate extending into the patient's left buccal surface and onto the left side the patient's tongue. There is no pain or swelling under the tongue. No dental caries or gross tooth decay. Crowns present to left upper mouth. No gingivitis. No area of fluctuance or induration. NECK: Neck supple, non-tender without lymphadenopathy, masses or thyromegaly. CARDIOVASCULAR: Regular rate and rhythm RESPIRATORY: Respiratory rate normal, respiratory effort nonlabored, no respiratory distress SKIN: warm, Dry, intact with no suspicious lesions or rash, good texture and turgor. No rash to hands or feet. NEURO: awake, alert, and oriented to person, place and time. There were no obvious focal neurologic abnormalities. EXTREMITIES: No joint tenderness, effusion, or edema noted. Course Course Emergency Course: Portions of this record may have been created with voice recognition software Level of Care: Express Care Visit Vital Signs Vital signs: Vital Signs Temperature 98.8 F 10/30/24 17:39 Pulse Rate 63 10/30/24 17:39 Respiratory Rate 16 10/30/24 17:39 Blood Pressure 122/67 10/30/24 17:39 Pulse Oximetry 100 10/30/24 17:39 Oxygen Delivery Room Air 10/30/24 17:39 Temperature 98.8 F 10/30/24 17:39 Pulse Rate 63 10/30/24 17:39 Respiratory Rate 16 10/30/24 17:39 Blood Pressure 122/67 10/30/24 17:39 Pulse Oximetry 100 10/30/24 17:39 Oxygen Delivery Room Air 10/30/24 17:39 Reviewed MDM - Dental/Oral MDM Narrative Medical decision making narrative: Evidence of a dental infection. Patient likely has herpangina or a form [id number]. Offered herpes testing for the sores and she declined. Patient states that she was recently exposed to her grandson who said that they have patent and large exposure of [id number] at their daycare but she states her grandson did not get sick with [id number]. Recommend [id number] therapy and supportive therapy. Prescribe magic mouthwash as needed for pain. Strict ER precautions discussed with patient especially if she is unable to keep fluids down, becomes dehydrated, decreased urine output, worsening symptoms, or any other concerns. Discussed physical exam findings. Advised supportive measures and signs/symptoms to go to the ER. Pt is appropriate for outpt treatment and f/u. Differential Diagnosis Differential diagnosis: Likely aphthous ulcer and other (Loon-hyyp-rteqh disease, herpangina, upper respiratory infections, herpes simplex virus) Critical Care Time Critical Care Time Critical Care Time: No Discharge Plan Discharge Clinical Impression: Herpangina Patient Disposition: Home Condition: Stable Instructions: Hand, Foot, and Mouth Disease (ED) Additional Instructions: Is likely to you have herpangina which is is a type of bxvs-hjrp-vaddg virus this is normally self-limiting condition will resolve within 5-10 days. Throat lesions usually resolve in 5-6 days. Continue take Tylenol or ibuprofen as needed for pain, follow the instructions on the bottle. Use the magic mouthwash as directed for pain. Does contain viscous lidocaine in the solution, do not exceed the recommended amount. Follow-up with your PCP in 3-5 days. Developed worsening pain, any concerns of dehydration, nausea, vomiting, decreased urine output, pain or swelling under your tongue, breathing problems, or any serious concerns please go to the ER immediately. Patient Language: Panamanian Prescriptions: New Magic Mouthwash (Dr. Freeman) 120 mL suspension 5 ml PO Q6H PRN (Reason: mouth pain) Qty: 120 0RF Rx Instructions: diphenhydramine 12.5 mg/5 mL oral elixir 40 mL; Lidocaine Viscous 2 % mucosal solution 40 mL; Maalox 200 mg-200 mg-20 mg/5 mL oral suspension 40 mL; Per 120 mL Swish and spit out 5 mL every 6 hours as needed for pain. No Action amitriptyline 50 mg tablet cetirizine [24Hour Allergy] 10 mg tablet 10 mg PO DAILY PRN (Reason: allergy symptoms) fluticasone propionate [24 Hour Allergy Relief] 50 mcg/actuation spray,suspension 1 spray intranasal DAILY PRN (Reason: allergy symptoms) Rx Instructions: administer into each nostril cephalexin 500 mg capsule 500 mg PO BID 5 Days Qty: 10 0RF nitrofurantoin monohyd/m-cryst 100 mg capsule 100 mg PO Q12H 5 Days Qty: 10 0RF Rx Instructions: must administer with a meal/food propranolol 20 mg tablet 20 mg PO BID Follow-up/Referrals: Krishna Kaur MD [Primary Care Provider] - Time of Disposition: 18:14
== END 2024-10-30 18:27 | disposition home or self-care (01) ==
PROVIDERS: PCP Family Medicine
DX: B08.5 Enteroviral vesicular pharyngitis (principal); M79.7 Fibromyalgia; D70.8 Other neutropenia
CPT/HCPCS: 99213; G0463